=== PATIENT | female | born 1995 | race Caucasian/White ===

== ENCOUNTER 2019-04-26 02:48 | Emergency (ER) | payer OTHER ==
[~2019-04-26] VITALS: Ht 167.6 cm; Wt 59.0 kg
[2019-04-26 03:04] VITALS: BP 140/83
--- NOTE | 2019-04-26 03:25 | NUR ---
Patient discharged to home in stable condition. Written and verbal after care instructions given. Patient verbalizes understanding of instruction.
== END 2019-04-26 03:26 | disposition home or self-care (01) ==
LOC: ER 02:55
DX: K59.00 Constipation, unspecified (principal)